=== PATIENT | male | born 1965 | race Caucasian/White ===

== ENCOUNTER 2024-03-14 09:25 | Emergency (ER) | payer OTHER ==
[~2024-03-14] VITALS: Ht 188 cm; Wt 127.0 kg
[2024-03-14 09:25] VITALS: BP_SYST 139; PULSE 81; RESP 18; TEMP 97.7; O2SAT 94
[2024-03-14] MEDS: HYDROcodone/ACETAMIN 10-325 MG TAB PO ONE (09:53)
[2024-03-14] MEDS: IBUPROFEN 800 MG TABLET PO ONE (09:54)
[2024-03-14] MEDS ORDERED: IBUP-1971 PO (10:56)
[2024-03-14] MEDS ORDERED: HYDR-3917 PO (10:56)
[2024-03-14 11:04] VITALS: BP_SYST 139; PULSE 81; RESP 18; TEMP 97.7; O2SAT 94
== END 2024-03-14 11:04 | disposition home or self-care (01) ==
LOC: SED 09:25
DX: S43.401A Unspecified sprain of right shoulder joint, initial encounter (principal); R19.7 Diarrhea, unspecified; R42 Dizziness and giddiness; R00.2 Palpitations; R55 Syncope and collapse; W19.XXXA Unspecified fall, initial encounter; Y93.89 Activity, other specified; Y92.89 Other specified places as the place of occurrence of the external cause; Y99.8 Other external cause status
CPT/HCPCS: 73030; 99283